=== PATIENT | female | born 1970 | race Caucasian/White ===

== ENCOUNTER 2024-01-19 07:30 | Inpatient (IN) ==
[~2024-01-19 07:30] MED LIST: BUPIVACAINE **LIPOSOME/PF 13.3 MG/ML (266MG/ 20ML) VIAL (RESTRICTED) INFIL SCH; Lactated Ringers 1000 ml BAG 1,000 ML IV SCH; NS 0.45% 1000 ml BAG 1,000 ML IV SCH; Naloxone 0.4 mg VIAL 0.4 mg/ml 1 ml VIAL IV PRN
[2024-01-19] MEDS ORDERED: Rocuronium 50 mg VIAL 10 mg/ml 5 ml VIAL (50 mg) ONE ×2 (08:35→08:38)
[2024-01-19] MEDS ORDERED: HYDROmorphone 0.5 MG/0.5 ML SYRINGE ONE ×3 (08:35→14:14)
[2024-01-19] MEDS ORDERED: Propofol 10 MG/ML 20 ML BTL ONE (08:36)
[2024-01-19] MEDS ORDERED: Dexamethasone IV 4 MG/ML VIAL 1 ml VIAL ONE (08:36)
[2024-01-19] MEDS ORDERED: Ondansetron 4 mg VIAL 2 MG/ML 2 ml VIAL ONE ×2 (08:36→15:16)
[2024-01-19 10:09] LABS: Rapid COVID-19 Molecular Undetected (Undetected)
[2024-01-19] MEDS ORDERED: Famotidine IV 10 MG/ML 2 ml VIAL (20 mg) ONE (10:11)
[2024-01-19] MEDS ORDERED: ceFAZolin 2 GM in NS PREMIX 2 GM/100 ML BAG IVPB ONE (10:11)
[2024-01-19] MEDS ORDERED: Bupivacaine 0.25% SDV 30 ML ONE (10:14)
[2024-01-19] MEDS ORDERED: Midazolam 2 mg/2 ml VIAL 1 mg/ml 2 ml VIAL (2 mg) ONE (10:14)
[2024-01-19] MEDS ORDERED: Lidocaine 2% PF 5 ML VIAL ONE ×2 (10:17→14:20)
[2024-01-19] MEDS: Famotidine IV 10 MG/ML 2 ml VIAL (20 mg) IV SLOW PU ONE (10:35)
[2024-01-19] MEDS ORDERED: Buffered Lidocaine 1% SYRIN 1 ml ONE (10:42)
[2024-01-19] MEDS ORDERED: Clindamycin 900 MG/50 **NS BAG 900 MG/50 ML BAG ONE (11:32)
[2024-01-19] MEDS ORDERED: Gentamicin ADULT 40 MG/ML VIAL (2 ML VIAL = 80 MG) ONE (11:34)
[2024-01-19] MEDS: Gentamicin ADULT 300 MG in NS 0.9% 100 ml BAG 100 ML IVPB ONE (11:57)
[2024-01-19] MEDS: Clindamycin 900 MG/D5W BAG 900 MG/50 ML BAG IVPB ONE (11:59)
[2024-01-19] MEDS ORDERED: Phenylephrine 40 mcg/mL 10mL (400mcg) SYRINGE ONE (12:12)
[2024-01-19] MEDS ORDERED: fentaNYL 100 mcg/2 ml 50 MCG/ML VIAL ONE ×2 (15:16→16:10)
[2024-01-19] MEDS: Ondansetron 4 mg VIAL 2 MG/ML 2 ml VIAL IV PRN ×2 (15:17→22:34)
[2024-01-19] MEDS: fentaNYL 100 mcg/2 ml 50 MCG/ML VIAL IV PRN (15:18)
[2024-01-19] MEDS ORDERED: Scopolamine 1 mg/72hr PATCH ONE (15:47)
[2024-01-19] MEDS: Scopolamine 1 mg/72hr PATCH TRANSDERM ONE (15:48)
[2024-01-19] MEDS: Buffered Lidocaine 1% SYRIN 1 ml INTRADERM ONE (15:54)
[2024-01-19] MEDS ORDERED: Acetaminophen IV 1 GM/100ML 1,000 MG/100 ML BAG IV ONE (16:10)
[2024-01-19] MEDS: Acetaminophen IV 1 GM/100ML 1,000 MG/100 ML BAG IV ONE (16:16)
[2024-01-19] MEDS ORDERED: HYDROmorphone 1 MG/1 ML SYRINGE ONE (16:38)
[2024-01-19] MEDS: HYDROmorphone 0.5 MG/0.5 ML SYRINGE IV SLOW PU PRN (16:43)
[2024-01-19 17:22] LABS: ABS Basophils 0.1 10^3/uL (0.0-0.1); ABS Lymphocytes 0.5 10^3/uL (1.0-4.8); ABS Monocytes 0.3 10^3/uL (0.0-0.9); Hematocrit 37.7 % (35-45); Hemoglobin 12.5 g/dL (11.5-14.3); Lymphocyte % 4.5 %; Mean Corpuscular Hgb Conc 33.2 g/dL (31-36); Mean Corpuscular Volume 84.2 fL (80-97); Mean Platelet Volume 7.1 fL (7.5-11.2); Platelet Count 212 10^3/uL (150-450); Red Blood Count 4.48 10^6/uL (3.63-4.92); White Blood Count 11.9 10^3/uL (3.8-11.8)
[2024-01-19 18:07] LABS: Calcium 8.2 mg/dL (8.6-10.3); Creatinine, Serum 0.85 mg/dL (0.51-0.95); Potassium 3.8 mmol/L (3.5-5.0); eGFR CKD-EPI 81.9 (>60)
[2024-01-19] MEDS: NS 0.9% 1000 ml BAG 1,000 ML IV SCH (18:09)
[2024-01-19] MEDS: Morphine 2 MG/ML SYRINGE ONE (18:30)
[2024-01-19] MEDS: Neomycin/Polym/Bacit TOP OINT 15 GM TOPICAL SCH (18:32)
[2024-01-19] MEDS: Morphine 2 MG/ML SYRINGE IV ONE (19:44)
[2024-01-19] MEDS: Venlafaxine XR 75 mg PO SCH (21:20)
[2024-01-19] MEDS: Magnesium Hydroxide LIQ 30 ML UDC PO SCH (21:20)
[2024-01-20] MEDS: LoraTADine 10 mg TAB (NF) PO SCH (09:46)
[2024-01-20 10:53] LABS: ABS Basophils 0.1 10^3/uL (0.0-0.1); ABS Monocytes 1.2 10^3/uL (0.0-0.9); ABS Nucleated RBC 0.01 10^3/ul; Eosinophil % 0.1 %; Hematocrit 37.2 % (35-45); Hemoglobin 12.3 g/dL (11.5-14.3); Lymphocyte % 8.7 %; Mean Corpuscular Hemoglobin 27.9 pg (27-33); Mean Corpuscular Volume 84.5 fL (80-97); Mean Platelet Volume 7.5 fL (7.5-11.2); Nucleated Red Blood Cells % 0.1 %/100WBC (0.0-0.8); Platelet Count 279 10^3/uL (150-450); Red Blood Count 4.41 10^6/uL (3.63-4.92); Red Cell Distribution Width 13.8 % (12-17); White Blood Count 11.3 10^3/uL (3.8-11.8)
[2024-01-20 11:23] LABS: Calcium 9.1 mg/dL (8.6-10.3); Creatinine, Serum 1.2 mg/dL (0.51-0.95); Potassium 4.2 mmol/L (3.5-5.0); eGFR CKD-EPI 54.1 (>60)
[2024-01-20 14:08] VITALS: BP 133/71
== END 2024-01-20 15:00 | disposition home or self-care (01) | DRG 443 ==
LOC: AA 09:23 → INTOOBSV 09:23 → OBSVTOIN 09:23 → SSU 10:26 → EDSTATUS 11:45
PROVIDERS: ADMIT Urology; ATTEND Urology